=== PATIENT | male | born 1990 | race African-American/Black ===

== ENCOUNTER 2017-05-13 00:54 | Emergency (ER) | payer OTHER ==
[2017-05-13 01:10] VITALS: BP 117/72; PULSE 76; RESP 18; TEMP 97
[2017-05-13] MEDS ORDERED: IBUPROFEN 800 MG TAB PO STA (01:47)
--- NOTE | 2017-05-13 01:50 | ED ---
General Adult HPI - General Chief complaint: Extremity Injury, Upper Stated complaint: Right thumb pain Time Seen by Provider: 05/13/17 01:33 Source: patient Mode of arrival: ambulatory Limitations: no limitations - Related Data Previous Rx's Medication Instructions Recorded Tobnc-Tkx-Asrs 278-164-250 mg 1 each PO TID #30 packet 10/22/15 [Neutra-Phos] Ibuprofen [Motrin] 600 mg PO Q8HR PRN #24 tab 05/13/17 Sulfamethox-Tmp 800-160Mg [Bactrim 1 tab PO Q12HR #14 tab 05/13/17 DS 800-160 mg] Allergies Allergy/AdvReac Type Severity Reaction Status Date / Time No Known Allergies Allergy Verified 05/13/17 01:10 Review of Systems ROS Statement: Those systems with pertinent positive or pertinent negative responses have been documented in the HPI. ROS Other: All systems not noted in ROS Statement are negative. Past Medical History Past Medical History: No Reported History History of Any Multi-Drug Resistant Organisms: None Reported Past Surgical History: No Surgical Hx Reported Past Psychological History: No Psychological Hx Reported Smoking Status: Former smoker Past Alcohol Use History: Occasional Past Drug Use History: None Reported General Exam Limitations: no limitations Course Vital Signs 05/13/17 01:06 Temperature 97.0 F L Pulse Rate 76 Respiratory 18 Rate Blood Pressure 117/72 O2 Sat by Pulse 99 Oximetry Disposition Clinical Impression: Paronychia of finger of left hand Disposition: HOME SELF-CARE Condition: Good Instructions: Paronychia (ED) Prescriptions: Ibuprofen [Motrin] 600 mg PO Q8HR PRN #24 tab PRN Reason: Pain Sulfamethox-Tmp 800-160Mg [Bactrim DS 800-160 mg] 1 tab PO Q12HR #14 tab Referrals: None,Stated [Primary Care Provider] - 1-2 days Time of Disposition: 01:49
--- NOTE | 2017-05-13 02:16 | XR ---
EXAM: XR Right Finger(s), 2 or More Views CLINICAL HISTORY: Reason: Pain TECHNIQUE: Frontal, lateral and oblique views of finger(s) of the right hand. COMPARISON: No relevant prior studies available. FINDINGS: Bones/joints: Unremarkable. No acute fracture. No dislocation. Soft tissues: Nonspecific soft tissue swelling at the dorsal aspect of the distal thumb. No radiopaque foreign body. IMPRESSION: No acute osseous abnormality. Nonspecific soft tissue swelling at the dorsal aspect of the distal thumb.
== END 2017-05-13 02:38 | disposition home or self-care (01) ==
LOC: EC 00:54
DX: L03.012 Cellulitis of left finger (principal); Z87.891 Personal history of nicotine dependence
CPT/HCPCS: 10060; 99283